=== PATIENT | male | born 1990 | race Caucasian/White ===

== ENCOUNTER 2016-11-24 18:13 | Emergency (ER) | payer OTHER ==
[~2016-11-24 18:13] MED LIST: ALBUTEROL SULF8.5 GM IH; AMOXICILLIN500 M1 PO; BLOOD GLUCOSE1 EACH MC; FIORICET 50-301 EACH PO; Glucophage PO; INSULIN NEEDLES; LANTUS 10100 UNITS/ SC; METFORMIN HCL500 MG PO; NOVOLIN N100 UNITS/ SC; NOVOLOG 10100 UNITS/ SC; NOVOLOG MI100 UNIT/4 SC; NovoLOG Mix 70/30 Vi SC; POTASSIUM-9999 MG PO; PREDNISONE20 MG PO; TAMIFLU75 MG PO; TEST N'GO1 EAC1 MC; TRAMADOL HCL50 MG PO; ZOFRAN ODT4 MG PO; Zithromax PO; [UNRECOGNIZED DRUG - OTHER]; [UNRECOGNIZED DRUG - OTHER]
[2016-11-24 18:31] LABS: BASOPHIL COUNT 0.1 K/uL (0-0.1); EOSINOPHIL (%) 1.7 % (0-5); EOSINOPHIL COUNT 0.2 K/uL (0-0.3); HEMATOCRIT 47.1 % (38.0-50.0); IMMATURE GRANULOCYTE (%) 1.2 % (0.0-0.7); IMMATURE GRANULOCYTE COUNT 0.1 K/uL; INSTRUMENT ABS NEUTROPHIL CT 5.5 K/uL; LYMPHOCYTE COUNT 2.5 K/uL (1.0-2.8); MCH 31.1 PG (29.0-34.0); MCHC 35.7 G/DL (30.0-36.0); MCV 87.1 FL (86-99); MEAN PLAT.VOLUME 9.9 uM^3 (9.0-12.4); MONOCYTE (%) 7.5 % (3-12); MONOCYTE COUNT 0.7 K/uL (0-0.8); NEUTROPHIL (%) 61.6 % (45-76); NEUTROPHIL COUNT 5.5 K/uL (1.8-6.4); PLATELET COUNT 263 K/uL (156-360); RBC DIS.WIDTH-CV 11.2 % (11.8-14.6); RBC DIS.WIDTH-SD 35.8 % (39-53); RED BLOOD COUNT 5.41 M/uL (4.00-5.50)
[2016-11-24 18:43] LABS: AMYLASE 41 IU/L (1-118); CHLORIDE 97 mEq/L (99-109); POTASSIUM 3.5 mEq/L (3.7-5.4); SODIUM 134 mEq/L (136-147)
[2016-11-24 18:46] LABS: ANION GAP 19 MEQ/L (2-14)
[2016-11-24 18:48] LABS: SERUM ETHYL ALCOHOL 261 mg/dL
[2016-11-24 18:49] LABS: GFR ESTIMATE (CALCULATED) > 59 mL/min/
[2016-11-24 18:50] LABS: UREA NITROGEN (BUN) 10 mg/dL (9-23)
[2016-11-24 18:52] LABS: LIPASE 52 U/L (1.0-51.0)
[2016-11-24 19:04] LABS: GLUCOSE 498 mg/dL (70-99)
[2016-11-24 19:21] LABS: ADD MIUA? YES; BILIRUBIN NEGATIVE; BLOOD MODERATE; COLOR STRAW ((YELLOW)); GLUCOSE (STRIP) >=500; KETONES 20; LEUKOCYTES NEGATIVE; NITRITE NEGATIVE; PROTEIN (STRIP) 30; SPECIFIC GRAVITY 1.027 (1.000-1.030); UROBILINOGEN 0.2 MG/DL (0.2-1.0)
[2016-11-24 19:23] LABS: BACTERIA NONE SEEN /HPF; EPITHELIAL CELLS RARE /HPF; MUCUS TRACE /LPF; RED BLOOD CELLS 0-5 /HPF (0-5); UCUL ADDED? NO; WHITE BLOOD CELLS 0-5 /HPF (0-5)
[2016-11-24 19:30] LABS: ADD MEDTOX COMMENT Y; AMPHETAMINE NEGATIVE (500 ng/mL); BARBITURATES NEGATIVE (200 ng/mL); BENZODIAZEPINES NEGATIVE (150 ng/mL); COCAINE NEGATIVE (150 ng/mL); INTERNAL CONTROLS VALID? YES; METHADONE NEGATIVE (200 ng/mL); METHAMPHETAMINE NEGATIVE (500 ng/mL); OPIATES (MORPHINE) NEGATIVE (100 ng/mL); OXYCODONE NEGATIVE (100 ng/mL); PHENCYCLIDINE NEGATIVE (25 ng/mL); PROPOXYPHENE NEGATIVE (300 ng/mL); THC CANNABINOIDS PRESUMPTIVE POSITIVE (50 ng/mL); TRICYCLIC ANTIDEPRESSANTS NEGATIVE (300 ng/mL)
[2016-11-24 19:31] LABS: BASE EXCESS -8.4 mEq/L (-3 to +3); BICARBONATE 18.9 mEq/L (22-26); CARBOXY HGB 1.5 % (0-5); COMMENTS - BLOOD GASES A+C+; DEVICE 980; FI02 100 %; METHEMOGLOBIN 1.4 % (0-1.5); PCO2 44 mm Hg (35-45); PO2 345 mm Hg (80-100); SITE RR
[2016-11-24 19:32] LABS: MECHANICAL RATE 14 resp/min; MODE AC; PEEP 5 CM/H20; TIDAL VOLUME 600 ML; TOTAL RESP RATE 21 resp/min; pH 7.24 (7.35-7.45)
[2016-11-24 21:38] LABS: POINT-OF-CARE METER ID UU14100415
[2016-11-24 21:55] LABS: SALICYLATE < 5.0 MG/DL (15-30)
[2016-11-24 22:17] LABS: BASE EXCESS -6.8 mEq/L (-3 to +3); BICARBONATE 17.7 mEq/L (22-26); CARBOXY HGB 1.7 % (0-5); COMMENTS - BLOOD GASES A+C+; DEVICE 980; FI02 80 %; MECHANICAL RATE 22 resp/min; METHEMOGLOBIN 1.7 % (0-1.5); MODE AC; PCO2 32 mm Hg (35-45); PEEP 5 CM/H20; PO2 298 mm Hg (80-100); SITE RR; TIDAL VOLUME 600 ML; TOTAL RESP RATE 22 resp/min; pH 7.35 (7.35-7.45)
== END 2016-11-24 22:59 | disposition short-term general hospital (02) ==
LOC: TRA 18:13
PROVIDERS: Emergency Medicine
DX: S02.611A Fracture of condylar process of right mandible, initial encounter for closed fracture (principal); S06.9X9A Unspecified intracranial injury with loss of consciousness of unspecified duration, initial encounter; S22.42XA Multiple fractures of ribs, left side, initial encounter for closed fracture; S02.5XXA Fracture of tooth (traumatic), initial encounter for closed fracture; R40.2413 Glasgow coma scale score 13-15, at hospital admission; E87.2 Acidosis; V47.5XXA Car driver injured in collision with fixed or stationary object in traffic accident, initial encounter; Y90.8 Blood alcohol level of 240 mg/100 ml or more; E10.65 Type 1 diabetes mellitus with hyperglycemia; Y92.410 Unspecified street and highway as the place of occurrence of the external cause; J98.11 Atelectasis; E66.9 Obesity, unspecified; Z68.34 Body mass index [BMI] 34.0-34.9, adult; F12.10 Cannabis abuse, uncomplicated; Z72.0 Tobacco use; Z88.1 Allergy status to other antibiotic agents; J45.909 Unspecified asthma, uncomplicated
CPT/HCPCS: 36600; 70450; 70486; 71260; 72125; 72129; 72132; 73590; 74177; 80048; 81003; 82150; 82803; 82948; 83690; 84999; 85025; 86900; 86901; 87070; 87077; 87185; 87205; 94002; 99281; 99285; G0480; J0330; J2250; J2704; J7030

== ENCOUNTER 2018-03-02 08:29 | Emergency (ER) | payer OTHER ==
[~2018-03-02] VITALS: Ht 182.9 cm; Wt 96.2 kg
[2018-03-02 11:08] LABS: HEMOGLOBIN 16.7 G/DL (12.5-16.6); MCH 33.2 PG (29.0-34.0); MCHC 36.3 G/DL (30.0-36.0); MCV 91.5 FL (86-99); PLATELET COUNT 219 K/uL (156-360); RBC DIS.WIDTH-SD 37.2 % (39-53); RED BLOOD COUNT 5.03 M/uL (4.00-5.50); WHITE BLOOD COUNT 8.8 K/uL (4.1-10.2)
[2018-03-02 11:19] LABS: CHLORIDE 98 mEq/L (99-109); POTASSIUM 4.1 mEq/L (3.7-5.4); SODIUM 133 mEq/L (136-147)
[2018-03-02 11:20] LABS: GLUCOSE 281 mg/dL (70-99)
[2018-03-02 11:24] LABS: CREATININE 0.8 mg/dL (0.6-1.3); GFR ESTIMATE (CALCULATED) > 59 mL/min/ (58.99-99999)
[2018-03-02 11:25] LABS: UREA NITROGEN (BUN) 14 mg/dL (9-23)
[2018-03-02 12:41] VITALS: BP 132/78
== END 2018-03-02 12:41 | disposition home or self-care (01) ==
LOC: EME 08:29
PROVIDERS: Nurse Practitioner Family
DX: H20.9 Unspecified iridocyclitis (principal); E11.65 Type 2 diabetes mellitus with hyperglycemia; E86.0 Dehydration; Z79.4 Long term (current) use of insulin; F17.200 Nicotine dependence, unspecified, uncomplicated
CPT/HCPCS: 80048; 85027; 99281; 99283